=== PATIENT | female | born 1940 | race Caucasian/White ===

== ENCOUNTER → 2017-06-27 | Day surgery (SDC) | payer MEDICARE, BC ==
[~2017-06-27] MED LIST: LIDOCAINE HCL 1% MPF SOL ONE; PROPOFOL 500 MG/50 ML EMU IV ONE
[2017-06-27 12:10] VITALS: BP 156/59; PULSE 53; RESP 18; TEMP 96.7; O2SAT 95
== END | disposition home or self-care (01) | DRG 392 ==
LOC: SURG 09:11
PROVIDERS: ATTEND Surgery
DX: R10.12 Left upper quadrant pain (principal); K57.30 Diverticulosis of large intestine without perforation or abscess without bleeding; R10.11 Right upper quadrant pain; K63.5 Polyp of colon
CPT/HCPCS: J2001; J2704